=== PATIENT | male | born 1955 | race Caucasian/White ===

== ENCOUNTER 2018-07-14 08:59 | Outpatient (CLI) | END 2018-07-14 09:00 | disposition home or self-care (01) | LOC: FCC-LAB 08:59 | PROVIDERS: ATTEND Family Medicine | DX: E11.9 Type 2 diabetes mellitus without complications (principal); R03.0 Elevated blood-pressure reading, without diagnosis of hypertension; G25.2 Other specified forms of tremor; N40.0 Benign prostatic hyperplasia without lower urinary tract symptoms; M19.90 Unspecified osteoarthritis, unspecified site; R68.82 Decreased libido | CPT/HCPCS: 36415; 80053; 80061; 82043; 83037; 84403; 85025 ==